=== PATIENT | male | born 1970 | race Caucasian/White ===

== ENCOUNTER → 2025-02-26 | Outpatient (CLI) | payer OTHER ==
--- NOTE | 2025-02-26 13:58 | CT ---
EXAMINATION TYPE: CT chest wo con DATE OF EXAM: 02/26/2025 COMPARISON: None CLINICAL INDICATION: Male, 54 years old with history of J44.9 CHRONIC OBSTRUCTIVE PULMONARY DISEASE, UNSPE; PHH, COPD TECHNIQUE: CT scan of the thorax is performed without IV contrast. CT DLP: [address] CTDI: mGy Automated exposure control for dose reduction was used. FINDINGS: There are mild emphysematous changes in the upper lobes. There are a few scattered juxtapleural nodul es, 6 mm nodules. There is no airspace consolidation. There is no abnormal interstitial density. There is no pleural effusion or pneumothorax. The great vessels chest are normal in size. There is no mediastinal, hilar or axillary adenopathy. Limited scanning through the upper abdomen reveals cholelithiasis. There are no focal osseous lesions. IMPRESSION: 1. Mild COPD. 2. Multiple sub-6 mm pulmonary nodules which are likely benign. Low-dose CT thorax is recommended at yearly intervals in this high-risk patient. 3. No acute cardiopulmonary disease. 4. Cholelithiasis. [facility], , 02/26/2025 1:55 PM
== END | disposition home or self-care (01) ==
LOC: RADCTMAIN 13:13
PROVIDERS: ATTEND Family Medicine
DX: J44.9 Chronic obstructive pulmonary disease, unspecified (principal); K80.20 Calculus of gallbladder without cholecystitis without obstruction; R91.8 Other nonspecific abnormal finding of lung field
CPT/HCPCS: 71250

== ENCOUNTER → 2025-03-11 | Outpatient (CLI) | payer OTHER ==
[2025-03-11 14:11] VITALS: BP 157/89; PULSE 60; RESP 16; TEMP 97.3
--- NOTE | 2025-03-11 17:22 | XR ---
EXAMINATION TYPE: XR cervical spine limited DATE OF EXAM: 03/11/2025 3:14 PM COMPARISON: None. CLINICAL INDICATION: Male, 54 years old with history of M54.12, M54.16, pain TECHNIQUE: 3 view(s) obtained. FINDINGS: There is a cervical kyphosis. Prevertebral space is normal. Anterior vertebral body spurring is prese nt C3-C7. There is narrowing of disc height at C4-5 C5-6 C6-7. Posterior spinal lamellar line is inta ct. IMPRESSION: 1. Degenerative disc changes within the kyphotic cervical spine [facility], Workstation: [facility], 03/11/2025 5:20 PM
--- NOTE | 2025-03-11 17:31 | P.PAINPG ---
PQRS Measure Charge Sheet Comment: HISTORY OF PRESENT ILLNESS: A 54 yr old male as a referral from the [facility] presents today w severe and chronic neck and LBP > 1 yr secondary to radiculopathy, spondylosis and facet arthropathy without myelopathy for evaluation. Pt states pain level is provoked at 8 /10 in intensity, constant, localized in the cervical & lumbar spine, predominantly axial, throbbing in character w occasional shooting pain towards the hands and BL hips & knees. Pain is provoked by lifting. Pain is alleviated by physician guided home exercises daily since Fall 2023, heat, medications, topical, repositioning and rest . Cervical disability score at 28. PMH: OA, HTN PSH: Denies SH: Daily tobacco use, Rare ETOH use, No illicit drug use FH: Non contributory All: See list Medications include [place] 10/325mg, Flexeril 10mg BID, Icy-Hot REVIEW OF ORGAN SYSTEMS: CONSTITUTIONAL: No fevers or chills. No recent weight loss. NEUROLOGICAL: + numbness and tingling along the distal extremities. No seizure disorders or headaches. MUSCULOSKELETAL: + pain PSYCHIATRIC: Denies current depression or suicidal thoughts. Physical Examinations : Constitutional : Cooperative , not in acute distress . Neurologic : Cranial nerve II to XII intact. No focal chris rological deficits. Psychiatric : alert & oriented x 3. Matching mood & appropriate affect. Judgment & insight intact. Musculoskeletal : Cervical Spine Motor strength in the deltoid and biceps: Normal right side. Normal Left side Motor strength biceps and the wrist extensors: Normal right side . Normal left side Motor strength in the triceps muscle: Normal right side. Normal left side Deep tendon reflexes: Normal at the biceps. Normal at Brachioradialis. Normal at triceps Lhermitte Sign (cervical flexion) pos itive Vertebral body tenderness to deep palpation over C6 Cervical facet loading test: positive bilaterally Spurling test: positive bilaterally Neck distraction test: positive bilaterally Arnoldo sign: positive bilaterally Shoulders Muscle bulk/ tone/ strength BL Resisted Internal Rotation positive R / positive L Resisted External Rotation positive R / positive L Empty Can Test positive R / positive L Drop Arm Test positive R / positive L Lumbar spine Motor strength lower extremities ,thigh and legs 5/5 Right side , 5/5 Left side Deep tendon reflexes : Normal Knee Jerk. Normal Ankle Jerk Vertebral body tenderness over Platt Test positive L4- L5 BL Lumbar facet Loading Test: positive Right / positive Left Range of motion of the lumbar spine Flexion 30 degrees, extension 10 degrees Straight Leg Raise test: Left/ Right positive at degrees Drop foot reflex: positive R / positive L Pola test: positive right / positive left. Severe tenderness over the Sacroiliac joint on the Right / Left sides Gaenslen test: positive bilaterally Sacral spine : Severe tenderness over the Sacroiliac joint: right side / left side Range of motion: Flexion of the lumbar spine <60 degrees Range of motion: Extension of the lumbar spine <20 degrees Gaenslen's Test positive Pola test: positive right side / left side Thigh Thrust Test Sacral Thrust Test Hip Joint Antalgic walking gait positive Trendelenburg positive R / positive L Imaging: None on file Assessment/ Plan : Cervical radiculopathy, Lumbar radiculopathy Recommendation of cervical, lumbar x rays M54.12, M54.16. All questions answered. I have spent greater than 30 minutes on patient care today. Dr Garrido was available by phone for the evaluation of this patient. The time was used to review the medical records including relevant urine studies and Prescription history (MAPs), review of the available imaging, evaluation and examination of the patient, coordination of care with the medical staff and if applicable referring physicians, as well as creation of the medical record - Pain Location Bilateral Lower Neck Non-Pharmacological Interventions: Inactivity, Position/Reposition Pharmacological Interventions: Scheduled Medication Controlled Substance Measures - Controlled Substance Measures Is patient prescribed a controlled substance at discharge?: No
--- NOTE | 2025-03-11 17:41 | XR ---
EXAMINATION TYPE: XR lumbar spine 2 or 3V DATE OF EXAM: 03/11/2025 3:14 PM COMPARISON: None. CLINICAL INDICATION: Male, 54 years old with history of M54.12, M54.16, pain TECHNIQUE: 3 view(s) obtained. FINDINGS: 5 lumbar-type vertebral bodies. Pedicles are intact. Degenerative disc changes are present. Spondylos is is present. Alignment is preserved. Vertebral body heights are preserved. IMPRESSION: 1. Degenerative disc changes and spondylosis lumbar spine [facility], Workstation: [facility], 03/11/2025 5:38 PM
== END ==
LOC: PNWHC3 13:03
PROVIDERS: ATTEND Specialist
DX: M47.26 Other spondylosis with radiculopathy, lumbar region (principal); M47.22 Other spondylosis with radiculopathy, cervical region
CPT/HCPCS: 72040; 72100; 99211